=== PATIENT | male | born 1965 | race Hispanic/Latino ===

== ENCOUNTER 2017-06-26 17:20 | Emergency (ER) | payer BC ==
[2017-06-26 17:24] VITALS: BP 158/97; PULSE 86; RESP 16; TEMP 98.7; O2SAT 99
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
== END 2017-06-26 19:10 | disposition home or self-care (01) ==
LOC: H.ER 17:20
DX: H11.30 Conjunctival hemorrhage, unspecified eye (principal); Y04.0XXA Assault by unarmed brawl or fight, initial encounter; R59.9 Enlarged lymph nodes, unspecified